=== PATIENT | female | born 1970 | race Caucasian/White ===

== ENCOUNTER → 2016-06-05 | Outpatient (CLI) | payer BC ==
[~2016-06-05] MED LIST: CALC-51 PO; MELO15TA4 PO; MULT-506 PO; OMEG10007 PO; OXYC-57 PO
--- NOTE | 2016-06-05 11:44 | DIAGNOSTIC IMAGING REPORT ---
CERVICAL SPINE MRI HISTORY: Pain. Neuropathy. LEFT ARM NUMBNESS TECHNIQUE: Multiplanar multisequence MRI of the cervical spine was performed without the use of contrast. COMPARISON STUDY: None. FINDINGS: Mild disc desiccation throughout. Normal signal characteristics of the vertebral bodies. Normal signal characteristics of the spinal column. C2-C3: Right posterior bulging disc. No significant contact with the cervical cord. Neural foramina patent C3-C4: No significant central canal or neural foraminal narrowing. C4-C5: Moderate osteophytic narrowing of the neuroforamina bilaterally C5-C6: Mild broad-based disc bulge. Moderate osteophytic narrowing of the neuroforamina bilaterally C6-C7: Mild central disc herniation. Mild impact anterior cervical cord. Neural foramina minimal osteophytic narrowing. C7-T1: No significant central canal or neural foraminal narrowing. IMPRESSION: 1. Mild central disc herniation C6-C7. Mild impact upon the anterior cervical cord. 2. Mild to moderate osteophytic narrowing of the bulk of the neuroforamina bilaterally at multiple levels as discussed Electronically signed by: Alcon Real M.D. 06/05/2016 11:42 AM Dictated Date/Time: 06/05/2016 11:40 AM
== END | disposition home or self-care (01) ==
LOC: C.MRI 10:10
PROVIDERS: ATTEND Physical Medicine & Rehabilitation Sports Medicine
DX: M54.2 Cervicalgia (principal); R20.0 Anesthesia of skin

== ENCOUNTER → 2016-06-27 | Outpatient (CLI) | payer BC | END | disposition home or self-care (01) | LOC: C.RDSM 09:51 | PROVIDERS: ATTEND Physical Medicine & Rehabilitation Sports Medicine | DX: M75.42 Impingement syndrome of left shoulder (principal); M25.512 Pain in left shoulder ==

== ENCOUNTER → 2016-10-09 | Day surgery (SDC) | payer BC ==
[2016-08-26 08:21] VITALS: Ht 162.6 cm; Wt 100.0 kg
[~2016-10-09] VITALS: Ht 162.6 cm; Wt 100.0 kg
[~2016-10-09] MED LIST changes: +ATROPINE SULFATE 0.1 MG/ML 5ML SYR IV PRN; +BUPIVACAINE/EPINEPHRINE 0.5% MPF 1:200,000 10 ML VIAL ONE; +CEFAZOLIN 2000 MG/60 ML D5W IV SCH; +DEXAMETHASONE SOD INJ 4 MG/ML VIAL ONE; +EpHEDrine SULFATE INJ 50 MG/ML AMP IV PRN; +EpINEphrine INJ 1MG/ML AMP 1 MG/ML AMP ONE; +FENTANYL CITRATE INJ 50 MCG/1 ML 2 ML VIAL ONE; +FLUMAZENIL 0.1 MG/1 ML 10 ML VIAL IV PRN; +GLYCOPYRROLATE INJ 0.2 MG/ML VIAL ONE; +KETOROLAC TROMETHAMINE 30 MG/ML VIAL IV. PRN; +LABETALOL HCL IV 5 MG/ML 20ML IV PRN; +LACTATED RINGER'S 1000ML 1,000 ML IV SCH; +LIDOCAINE HCL 2% 2 ML VIAL (20MG/ML) ONE; +LIDOCAINE/EPINEPHRINE 1% INJ 50 ML VIAL ONE; +MEPIVACAINE HCL 1% 30 ML VIAL ONE; +MIDAZOLAM HCL 1 MG/ML 2ML VIAL ONE; +MoRPHine SULFATE 2 MG/ML CARP IV PRN; +MoRPHine SULFATE 4 MG/ML 1 ML CARP\\VIAL IV PRN; +NALOXONE HCL 0.4 MG/1 ML VIAL/CARP IV PRN; +NEOSTIGMINE METHYLSULFATE 5 MG/5 ML SYR ONE; +ONDANSETRON INJ 2 MG/ML 2 ML VIAL IV PRN; +ONDANSETRON INJ 2 MG/ML 2 ML VIAL ONE; +OXYCODONE/ACETAMINOPHEN 5-325 TAB PO PRN; +PROMETHAZINE HCL INJ 12.5 MG in SODIUM CHLORIDE 0.9% 50ML 50 ML IV PRN; +PROPOFOL IV EMULSION 10 MG/ML 20 ML VIAL IV ONE; +ROCURONIUM BROMIDE 10 MG/ML 5 ML VIAL ONE; +SODIUM CHLORIDE 0.9% 1000ML 1,000 ML IV SCH; +SODIUM CHLORIDE 0.9% INJ 10 ML VIAL ONE
--- NOTE | 2016-10-09 07:19 | History & Physical Bridge Note ---
H&P Re-Evaluation Bridge Note: I have examined the patient, reviewed the History & Physical and in the interval since the performance of the History & Physical I have noted the following changes of clinical significance: possible tenodesis No changes noted
--- NOTE | 2016-10-09 11:46 | [facility] Operative Report ---
Operative Report Operative Date Oct 09, 2016. Pre-Operative Diagnosis Left Shoulder Impingement Post-Operative Diagnosis Same Procedure(s) Performed Left Shoulder Arthroscopy, Subacromial Decompression, Mini Open Distal Clavicle Excision Surgeon Dr. Velasco [place] Tender Surgeon(s) Concepcion Salmon PA-C Estimated Blood Loss 5 mL Findings Subacromial bursitis Specimens A. Left Distal Clavicle Drains none Anesthesia laryngeal mask with interscalene block Complication(s) None Disposition Recovery Room / PACU Implants None Indications The patient's a 46-year-old female with left shoulder pain refractory to nonsurgical methods of management. Her symptoms are consistent with impingement and before meals joint arthralgia. Description of Procedure Patient was identified as Ru Dooley. She identified the operative site as the left shoulder. I marked with my initials. Preoperative surgical timeout was performed. Appropriate dose of IV antibiotics were given. She was taken to the operating room positioned in the beachchair position after the administration of a of the anesthetic. Neutral alignment the occiput was padded. The Tennent body positioner and [place] arm holders were utilized. The heels were padded and the knees were flexed. The torso secured to the table 1% lidocaine with epinephrine was injected into the portal sites and subacromial space preoperatively. The examination under anesthesia demonstrated full equal movement with grade 2 laxity posteriorly and grade 1 laxity anteriorly equal bilaterally. Informed consent was obtained. DVT prophylaxis will be done with early patient mobility. Intraoperatively with foot pumps. A routine prep and drape was performed. A posterior soft spot viewing portal was established followed by an anterior mid glenoid working portal through the outside in technique. Diagnostic arthroscopy was performed. The articular surface of the humeral head and glenoid were normal the labrum was intact circumferentially there was some minor fraying in the [place] region of the rotator cuff which was debrided but otherwise the rotator cuff was normal. Loose bodies the axillary pouch normal subscap and biceps normal. The biceps was carefully examined and pulled into the joint was not unstable nor did have any evidence of tendinosis or tearing. The scope was placed anteriorly to visualize posterior structures. Scope was placed in the subacromial space there was significant subacromial bursitis which was thoroughly debrided. An accessory lateral portal was created. The rotator cuff was intact on the bursal surface. The undersurface of the anterior acromion was denuded of soft tissue. The coracoacromial ligament was released. A small anterior prominence 3-5 mm in thickness was debrided using the bur. This was smoothed from back to front and then from side to side yielding an adequate decompression. The cold cut was used for hemostasis. The pio on through the shoulder pickup loose bony debris. The arthroscopic instruments were removed from the shoulder a transverse incision was made parallel to the acromioclavicular joint at that level. Localization was performed with a spinal needle. Electrocautery utilized down to septic cutaneous tissues. The deltotrapezial fascia was opened in line with septic clavicle. The distal clavicle was exposed. The facet was oblique lateral superior to medial inferior. The distal 7-10 mm of the clavicle was excised using an oscillating saw and sent for specimen. No bony spicules and I could fit my finger within the before meals joint. The wound was irrigated hemostasis performed with electrocautery the deltotrapezial fascia was reapproximated using 0 Vicryl the skin was closed with 2-0 Vicryl and a 4-0 Monocryl subcuticular stitch on the skin. The portals were closed with 4-0 nylon. The arm was cleaned with wet and dry sponges. An ABG was placed in the armpit along with a bulky soft sterile dressing and simple arm sling. Patient awakened from anesthesia without difficulty taken to recovery in stable condition. Specimens as mentioned above. Blood loss minimal. Counts correct in the case. At the conclusion operation there was no unavailable to speak to. The patient will be rehabilitated according to the arthroscopic acromioplasty protocol. I attest to the content of the Intraoperative Record and any orders documented therein. Any exceptions are noted below.
--- NOTE | 2016-10-09 11:52 | Discharge Instructions-SurgCtr ---
Discharge Instructions Date of Service Oct 09, 2016. Visit Reason for Visit: Left Shoulder Impingement, Acromioclavicular Joint Discharge Discharge Diagnosis / Problem: left shoulder impingement; AC joint arthropathy Discharge Goals Goal(s): Decrease discomfort, Improve function, Increase independence Medications Stopped Medications Name(s): Meloxicam- stopped Thursday10/05/16 Restart Stopped Medication(s): Resume meloxicam when tolerating food Activity Recommendations Activity Limitations: per Instructions/Follow-up section Anesthesia . Post Anesthesia Instructions: If you have had General Anesthesia or IV Sedation: * Do not drive today. * Resume driving when surgeon permits. * Do not make important decisions or sign legal documents today. * Call surgeon for: 1. Temperature elevations greater than 101 degrees F. 2. Uncontrollable pain. 3. Excessive bleeding. 4. Persistent nausea and vomiting. 5. Medication intolerance (nausea, vomiting or rash). * For nausea and vomiting use only clear liquids such as: tea, soda, bouillon until nausea subsides, then gradually increase diet as tolerated. * If you have any concerns or questions, call your surgeon's office. If physician is unavailable and it is an emergency, call 911 or go to the nearest emergency room. . Instructions / Follow-Up Instructions / Follow-Up The following are instructions to follow after "Shoulder Surgery" including, Acromioplasty, Rotator Cuff Repair and Instability Surgery ACTIVITY RECOMMENDATIONS: * Minimize activity after surgery. * No excessive walking, jogging, sports or laboring. * Return to activity is individualized depending on the patient and type of surgery. * Driving is not permitted until at least your first post operative visit. Please ask your doctor when it is safe to resume driving. * Expect increased discomfort with increased activity. Continue to ice the shoulder as needed. SCHOOL/WORK RECOMMENDATIONS: * You may return to sedentary work or school when you are feeling more comfortable. This is usually 3-7 days after surgery. MEDICATIONS: * You will have a prescription for pain medication and an anti-inflammatory medication after surgery. * Use the pain medication for severe pain and the anti-inflammatory for less severe pain. Once the pain medication has run out, try to use the anti-inflammatory medication. If this is not effective, contact the office for assistance. * The pain medication may cause nausea, constipation and drowsiness. You should see how they affect you before driving or similar activity. * The anti-inflammatory medication may cause stomach upset and bleeding. If this occurs let your doctor know immediately . * Take a stool softener like Colace or a laxative like Senokot to prevent constipation. DIET: * Resume previous diet. SPECIAL CARE: ICE: You have the option of an ice cooler, gel packs or ice bags. * If you have an ice cooler, refer to the instructions for that device. The ice cooler may be used continuously. * If you do not have an ice cooler, you will need to use ice bags or gel packs. Do not apply ice directly to the skin. Use a thin dressing or joyce shirt between the skin and ice bag. Apply ice for 20-30 minutes and repeat every 2-4 hours. This is especially important for the first 7-10 days after surgery. Once the pain improves, use ice as needed. ELEVATION: * You may be more comfortable sleeping in an upright position. Use the sling to elevate your arm. DRESSING: * Your dressing will be changed at your first therapy appointment approximately 4-5 days after surgery. Band-aids, tape strips or gauze may be applied. You may then change your dressing daily. * Reapply dressing followed by the EBIce cooling pad (if chosen) and then the sling. * Always wash your hands prior to touching the incision area. * Once the stitches are removed, you may leave the wound open to air or cover with gauze. * Expect some bloody drainage for the first few days after surgery. * Leave the tape strips, if present, in place for 5-7 days. * Band-aids and gauze may be changed daily. * There may be a gauze pad in your armpit area. This can be changed daily or replaced by a dry washcloth. SLING/BRACE: * You will need to use a sling or brace after surgery. The length of time the sling is used is dependent upon the type of surgery performed. * Arthroscopic Acromioplasty requires use of the sling for 2-4 weeks for comfort. * Labral procedures and Rotator Cuff Repairs require use of the sling for a longer period of time. Please check with your doctor prior to discontinuing the sling. BATHING: * You may shower or sponge-bathe immediately after surgery. The post operative shoulder dressing is mostly water-tight. You may shower right over this dressing, but be reasonably careful not to get the gauze or incision wet. * Once the dressing has been changed on the fourth or fifth day after surgery, you may shower and get the incision wet. * Wash with regular soap and water. * Do not bathe (submerge the incision), soak, swim or use a hot tub until the incision is completely healed over with normal skin and the doctor has given the OK to proceed. * There is no need to apply any ointments, powders or salves to your incision. * Do not apply alcohol or hydrogen peroxide directly to the incision. * Diluted peroxide (50:50 mixture with sterile saline) may be used to clean dried blood from around the incision area. THERAPY: * You will begin therapy four or five days after surgery. * Organized therapy with the therapist is important for the first 2-4 months after surgery depending on the type of procedure. During that time you will attend therapy 1-3 times per week. * You will also need to do daily exercises for range of motion and strength as instructed. * Patients who have a Capsular Shift Procedure will need to abide by temporary range of motion limitations. * Patients having Rotator Cuff Surgery are not allowed to actively lift their arms until 4-6 weeks after surgery. * Please check with your doctor regarding appropriate motion restrictions. FOLLOW UP VISIT: * If not already scheduled, please call the office at to schedule a follow-up appointment for 10 days after surgery and monthly thereafter. * Start physical therapy on 09/29/2016 at [facility] at 10:30 AM * You have a follow-up appointment with Dr. Velasco on 10/02/2016 at 9:15 AM Diet Recommendations Home Diet: no limitations, resume previous diet Procedures Procedures Performed: Left Shoulder Arthroscopy, Subacromial Decompression, Mini Open Distal Clavicle Excision Pending Studies Studies pending at discharge: no Medical Emergencies . Who to Call and When: Medical Emergencies: If at any time you feel your situation is an emergency, please call 911 immediately. . Non-Emergent Contact Non-Emergency issues call your: Surgeon Call Non-Emergent contact if: temperature is above 101, your pain is not controlled, your pain is concerning you, wound has increased drainage, wound has increased redness, wound has increased pain, you have any medication questions . . "Provider Documentation" section prepared by Yuliana Salmon. . [place] Drug Monitoring Program Search Results: patient reviewed within database, no issues identified
--- NOTE | 2016-10-09 11:55 | [facility] Operative Report ---
Operative Report Operative Date Oct 09, 2016. Pre-Operative Diagnosis Left Shoulder Impingement Post-Operative Diagnosis Same Procedure(s) Performed Left Shoulder Arthroscopy, Subacromial Decompression, Mini Open Distal Clavicle Excision Surgeon Dr. Leodan Velasco [place] Cook Surgeon(s) Yuliana Salmon PA-C Estimated Blood Loss 5 mL Findings Acromioclavicular joint arthropathy, subacromial bursitis Specimens A. Left Distal Clavicle Drains none Anesthesia laryngeal mask with interscalene block Complication(s) None Disposition Recovery Room / PACU Indications Patient is a 46-year-old female with a long-standing history of left shoulder pain for the past 3 years. She denies any known injury. Her pain has progressively worsened. She has failed conservative treatment such as physical therapy and steroid injections. Due to the failure of conservative treatment surgical intervention was discussed. She agreed to proceed with surgery. Risks and complications were discussed. Informed consent was obtained. Description of Procedure Patient was taken to the operating room and placed under general anesthesia. She had an interscalene nerve block of her left shoulder. She was given 2 g of IV Ancef for surgical prophylaxis. Timeout was performed. She was prepped and draped in routine sterile fashion. I was present during the entire case, please see Dr. Velasco's operative report for further detail. Patient was awakened and transferred to the recovery room in stable condition. I attest to the content of the Intraoperative Record and any orders documented therein. Any exceptions are noted below.
[2016-10-09] MEDS: HYDROmorphone INJ 1 MG/ML SYR IV PRN ×2 (12:53→13:05)
[2016-10-09 13:31] VITALS: TEMP 36.7
--- NOTE | 2016-10-09 13:45 | Anesthesia Progress Nt - [facility] ---
Anesthesia Post Op Note Date & Time Oct 09, 2016 at 13:45 Vital Signs Pain Intensity: 4 Vital Signs Past 12 Hours Date Time Temp Pulse Resp B/P (MAP) Pulse Ox O2 Delivery O2 Flow Rate FiO2 10/09/16 13:31 36.7 88 16 124/83 (97) 95 Room Air 10/09/16 13:20 36.4 87 16 131/82 94 Room Air 10/09/16 13:16 127/83 10/09/16 13:15 93 18 94 10/09/16 13:15 93 18 10/09/16 13:11 136/83 10/09/16 13:10 95 12 10/09/16 13:10 12 10/09/16 13:06 133/90 10/09/16 13:05 88 21 97 10/09/16 13:05 90 21 10/09/16 13:01 133/84 10/09/16 13:00 87 22 98 10/09/16 13:00 90 22 10/09/16 12:56 133/84 10/09/16 12:55 91 23 98 10/09/16 12:55 92 23 10/09/16 12:51 133/89 10/09/16 12:50 86 19 10/09/16 12:50 84 19 97 10/09/16 12:46 135/97 10/09/16 12:45 88 30 10/09/16 12:45 89 30 97 10/09/16 12:41 137/92 10/09/16 12:40 95 33 97 10/09/16 12:40 94 33 10/09/16 12:36 132/91 10/09/16 12:35 89 19 10/09/16 12:35 89 19 97 10/09/16 12:31 136/86 10/09/16 12:30 98 37 97 10/09/16 12:30 98 37 10/09/16 12:26 156/96 10/09/16 12:25 91 27 10/09/16 12:25 92 27 97 10/09/16 12:21 152/91 10/09/16 12:20 83 15 10/09/16 12:20 82 15 98 10/09/16 12:16 162/87 10/09/16 12:15 82 16 10/09/16 12:15 82 16 96 10/09/16 12:11 161/85 10/09/16 12:10 86 14 97 10/09/16 12:10 86 14 10/09/16 12:06 168/95 10/09/16 12:05 82 17 10/09/16 12:05 82 17 96 10/09/16 12:01 140/89 10/09/16 12:00 81 18 10/09/16 12:00 80 18 96 10/09/16 11:59 84 18 96 10/09/16 11:59 85 18 10/09/16 11:56 145/92 10/09/16 11:54 92 27 98 10/09/16 11:54 91 27 10/09/16 11:52 36.3 90 14 142/90 97 Mask 5 10/09/16 11:50 142/90 10/09/16 09:39 87 96 10/09/16 09:39 87 10/09/16 09:34 87 0 96 10/09/16 09:34 87 10/09/16 09:31 130/96 10/09/16 09:29 86 10/09/16 09:29 86 23 99 10/09/16 09:28 82 17 98 10/09/16 09:28 83 10/09/16 09:26 134/73 10/09/16 09:23 82 10/09/16 09:23 81 19 99 10/09/16 09:21 135/83 10/09/16 09:18 87 29 99 10/09/16 09:18 86 10/09/16 09:16 150/82 10/09/16 09:13 81 10/09/16 09:13 81 25 99 10/09/16 09:11 121/85 10/09/16 09:08 89 10/09/16 09:08 89 29 99 10/09/16 09:06 129/90 10/09/16 09:03 89 24 99 10/09/16 09:03 87 10/09/16 09:01 132/73 10/09/16 08:58 89 34 99 10/09/16 08:58 91 10/09/16 08:56 114/79 10/09/16 08:53 86 10/09/16 08:53 86 28 99 10/09/16 08:51 117/90 10/09/16 08:48 86 10/09/16 08:48 85 28 99 10/09/16 08:46 113/76 10/09/16 08:43 85 10/09/16 08:43 86 19 99 10/09/16 08:41 122/75 10/09/16 08:38 82 10/09/16 08:38 82 14 100 10/09/16 08:36 122/78 10/09/16 08:33 79 21 99 10/09/16 08:33 81 10/09/16 08:31 131/84 10/09/16 08:28 72 10/09/16 08:28 69 37 100 10/09/16 08:27 110/80 10/09/16 07:14 36.2 70 20 129/83 (98) 95 Room Air Notes Mental Status: alert / awake / arousable, participated in evaluation Pt Amnestic to Procedure: Yes Nausea / Vomiting: adequately controlled Pain: adequately controlled Airway Patency, RR, SpO2: stable & adequate BP & HR: stable & adequate Hydration State: stable & adequate Anesthetic Complications: no major complications apparent
[2016-10-09 14:19] VITALS: BP 128/86; PULSE 70; O2SAT 96
== END | disposition home or self-care (01) ==
LOC: X.SURG 07:08
PROVIDERS: ATTEND Physical Medicine & Rehabilitation Sports Medicine
DX: M75.42 Impingement syndrome of left shoulder (principal); M75.52 Bursitis of left shoulder; Z90.710 Acquired absence of both cervix and uterus; Z90.49 Acquired absence of other specified parts of digestive tract

== ENCOUNTER → 2016-10-22 | Outpatient (CLI) | payer BC ==
[~2016-10-22] MED LIST changes: -ATROPINE SULFATE 0.1 MG/ML 5ML SYR IV PRN; -BUPIVACAINE/EPINEPHRINE 0.5% MPF 1:200,000 10 ML VIAL ONE; -CEFAZOLIN 2000 MG/60 ML D5W IV SCH; -DEXAMETHASONE SOD INJ 4 MG/ML VIAL ONE; -EpHEDrine SULFATE INJ 50 MG/ML AMP IV PRN; -EpINEphrine INJ 1MG/ML AMP 1 MG/ML AMP ONE; -FENTANYL CITRATE INJ 50 MCG/1 ML 2 ML VIAL ONE; -FLUMAZENIL 0.1 MG/1 ML 10 ML VIAL IV PRN; -GLYCOPYRROLATE INJ 0.2 MG/ML VIAL ONE; -KETOROLAC TROMETHAMINE 30 MG/ML VIAL IV. PRN; -LABETALOL HCL IV 5 MG/ML 20ML IV PRN; -LACTATED RINGER'S 1000ML 1,000 ML IV SCH; -LIDOCAINE HCL 2% 2 ML VIAL (20MG/ML) ONE; -LIDOCAINE/EPINEPHRINE 1% INJ 50 ML VIAL ONE; -MEPIVACAINE HCL 1% 30 ML VIAL ONE; -MIDAZOLAM HCL 1 MG/ML 2ML VIAL ONE; -MoRPHine SULFATE 2 MG/ML CARP IV PRN; -MoRPHine SULFATE 4 MG/ML 1 ML CARP\\VIAL IV PRN; -NALOXONE HCL 0.4 MG/1 ML VIAL/CARP IV PRN; -NEOSTIGMINE METHYLSULFATE 5 MG/5 ML SYR ONE; -ONDANSETRON INJ 2 MG/ML 2 ML VIAL IV PRN; -ONDANSETRON INJ 2 MG/ML 2 ML VIAL ONE; -OXYCODONE/ACETAMINOPHEN 5-325 TAB PO PRN; -PROMETHAZINE HCL INJ 12.5 MG in SODIUM CHLORIDE 0.9% 50ML 50 ML IV PRN; -PROPOFOL IV EMULSION 10 MG/ML 20 ML VIAL IV ONE; -ROCURONIUM BROMIDE 10 MG/ML 5 ML VIAL ONE; -SODIUM CHLORIDE 0.9% 1000ML 1,000 ML IV SCH; -SODIUM CHLORIDE 0.9% INJ 10 ML VIAL ONE
--- NOTE | 2016-10-22 15:17 | DIAGNOSTIC IMAGING REPORT ---
LEFT SHOULDER MIN 2 VIEWS CLINICAL HISTORY: IMPINGEMENT SYNDROME OF LEFT SHOULDER pain COMPARISON: 06/27/2016 DISCUSSION: Interval resection of the distal left clavicle. All remaining osseous structures are unremarkable. No abnormal soft tissue calcifications. There is no evidence for soft tissue swelling. IMPRESSION: Interval resection of the distal clavicle. Otherwise negative study. The above report was generated using voice recognition software. It may contain grammatical, syntax or spelling errors. Electronically signed by: Alcon Real M.D. 10/22/2016 3:16 PM Dictated Date/Time: 10/22/2016 3:15 PM
== END | disposition home or self-care (01) ==
LOC: C.RDSM 14:45
PROVIDERS: ATTEND Physician Assistant
DX: M75.42 Impingement syndrome of left shoulder (principal)